=== PATIENT | male | born 1980 | race Caucasian/White ===

== ENCOUNTER 2016-09-21 11:00 | Emergency (ER) | payer BC, OTHER ==
[~2016-09-21] VITALS: Ht 160 cm; Wt 76.0 kg
[~2016-09-21 11:00] MED LIST: ONDA4TAB7 SL; VSNOPS OPB
[2016-09-21 11:04] VITALS: TEMP 36.7; Ht 160 cm; Wt 76.0 kg
[2016-09-21 13:11] LABS: BASO % 0.6 %; BASO ABS # 0.03 K/uL (0-0.2); COMPLETE YES; EOS % 4.2 %; HEMATOCRIT 40.8 % (42-52); IG% 0.2 %; LYMPH % 38.2 %; MEAN CELL VOLUME 86.3 fL (80-100); MEAN CORPUSCULAR HEMOGLOBIN 29.8 pg (25-34); MEAN CORPUSCULAR HGB CONC 34.6 g/dl (32-36); MEAN PLATELET VOLUME 9.4 fL (7.4-10.4); MONO % 8.6 %; NEUT % 48.2 %; PLATELET COUNT 249 K/uL (130-400); RED BLOOD COUNT 4.73 M/uL (4.7-6.1); WHITE BLOOD COUNT 5.24 K/uL (4.8-10.8)
--- NOTE | 2016-09-21 13:11 | EMERGENCY ROOM VISIT NOTE ---
History First contact with patient: 12:13 Chief Complaint: BACK PAIN Stated Complaint: SCIATIC NERVE ISSUES/FEMERAL ARTERY History of Present Illness The patient is a 36 year old male who presents to the Emergency Room with complaints of Feeling as if his legs have been in a "semi-asleep state" times one and half weeks. The patient states he feels that the blood flow into his legs is not very good right now. He states he feels like something is "pinched off" on the bony parts of his back. The patient states this discomfort is in bilateral legs , and not worse on one side. The patient states when this occurs, and he moves , he experiences a head sandoval, and feels as if he could pass out. The patient states this lasts 5-6 seconds. He states when this happens, only his right leg feels like it is "on fire" and states he feels as if it is "like lava is in my veins". The patient states this lasts approximately 1 minute. The patient states these events occur in this order. He states after the episode, his legs feel heavy "like a wet log". The patient states this has been going on for approximately 1-1/2 weeks, and has been intermittent, however worse on the weekends from Wednesday through Wednesday. The patient states it last happened last night. He states it did not completely go away. He describes the sensation in his legs as a pulling or stretching. The patient states he is concerned about a blood clot. 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 The patient states he does complete the same activity during the week as he does on the weekends. He states when these episodes have occurred, he has been sitting, taking a shower, sleeping, or changing positions. Patient states the symptoms are associated with lightheadedness. The patient did attempt to use ibuprofen 600 mg once, and states he last did this last night and went to sleep. He is uncertain if this affected his symptoms. The patient states he did use an OTC electric stimulator, which she states feels that this worsened his pain. The patient does report history of 2 hernias which were fixed with mesh, proximally 2 years ago. The patient does admit to noticing possible spider bites in his pelvic region and on his legs approximate 3 weeks ago. The patient states they healed up well, and he denies ongoing rash or skin lesion. The patient denies chest pain, dyspnea, headache, dizziness, nausea, vomiting, abdominal pain, fatigue, lethargy, weakness, urinary changes, loss of bowel or bladder function, or other concerning symptoms. Review of Systems A complete 10 point review of systems was reviewed with the patient with pertinent positives and negatives as per history of present illness. All else were negative. Social History Smoking Status: Never Smoker Current/Historical Medications No Active Prescriptions or Reported Meds Physical Exam Vital Signs Date Time Temp Pulse Resp B/P (MAP) Pulse Ox O2 Delivery O2 Flow Rate FiO2 09/21/16 12:57 66 18 114/72 99 Room Air 09/21/16 11:04 36.7 76 16 123/81 99 Physical Exam VITALS: Vitals are noted on the nurse's note and reviewed by myself. Vital signs stable. GENERAL: This is a 36-year-old male, in no acute distress, nondiaphoretic, well- developed well-nourished. SKIN: The skin was without rashes, erythema, edema, or bruising. There is no tenting of the skin. Capillary reflex less than 2 seconds. HEAD: Normocephalic atraumatic. EARS: External auditory canals clear, tympanic membranes pearly lewis without erythema or effusion bilaterally. EYES: Pupils equal round and reactive to light and accommodation. Conjunctivae without injection, sclerae without icterus. Extraocular movements intact. NOSE: Patent, turbinates without inflammation or discharge. No sinus tenderness. MOUTH: Mucous membranes moist. Tonsils are not enlarged. Pharynx without erythema or exudate. Uvula midline. Airway patent. Tongue does not deviate. NECK: Supple without nuchal rigidity. No lymphadenopathy. No thyromegaly. Cervical spine is nontender. No JVD. HEART: Regular rate and rhythm without murmurs gallops or rubs. LUNGS: Clear to auscultation bilaterally without wheezes, rales or rhonchi. No dullness to percussion. No retractions or accessory muscle use. ABDOMEN: Positive bowel sounds x 4. Normal tympanic percussion. Soft, nontender, without masses or organomegaly. Rogers sign negative. No guarding or rebound tenderness. No CVA tenderness. MUSCULOSKELETAL: No muscle atrophy, erythema, or edema noted. Full range of motion without joint tenderness in all extremities. No tenderness to palpation. Normal gait. Strength 5/5 throughout. No pain on palpation of the bilateral calves. No palpable cord. NEURO: Patient was alert and oriented to person place and time. Normal sensation to light and sharp touch. Deep tendon reflexes 2+ throughout. No focal neurological deficits. Medical Decision & Procedures ER Provider Diagnostic Interpretation: LABS: CBC without leukocytosis, thrombocytopenia. Hematocrit is slightly low at 40.8. CMP without abnormalities. Kidney function normal, electrolytes normal. Urinalysis normal. Lyme disease testing was negative. L-Spine X-Ray: FINDINGS: Mild straightening of normal lumbar lordosis, which may be positional. Vertebral body heights and alignment maintained. Intervertebral disc spaces preserved. No radiographic evidence of acute fracture or subluxation. No osseous neural foraminal narrowing. Nonobstructive bowel gas pattern. No gross pneumoperitoneum. IMPRESSION: No significant abnormality of the lumbar spine. Bilateral Venous Duplex Scan: FINDINGS: Real-time and color flow Doppler imaging were performed. Flow was seen within the femoral, popliteal and calf veins with no intraluminal thrombus demonstrated. The saphenous vein is patent. IMPRESSION: No evidence of lower extremity DVT. Laboratory Results 09/21/16 12:15 Red Blood Count 4.73, Mean Corpuscular Volume 86.3, Mean Corpuscular Hemoglobin 29.8, Mean Corpuscular Hemoglobin Concent 34.6, Mean Platelet Volume 9.4, Neutrophils (%) (Auto) 48.2, Lymphocytes (%) (Auto) 38.2, Monocytes (%) (Auto) 8.6, Eosinophils (%) (Auto) 4.2, Basophils (%) (Auto) 0.6, Neutrophils # (Auto) 2.53, Lymphocytes # (Auto) 2.00, Monocytes # (Auto) 0.45, Eosinophils # (Auto) 0.22, Basophils # (Auto) 0.03 09/21/16 12:15 Test 09/21/16 12:15 09/21/16 12:55 White Blood Count 5.24 K/uL (4.8-10.8) Red Blood Count 4.73 M/uL (4.7-6.1) Hemoglobin 14.1 g/dL (14.0-18.0) Hematocrit 40.8 % (42-52) Mean Corpuscular Volume 86.3 fL (80-100) Mean Corpuscular Hemoglobin 29.8 pg (25-34) Mean Corpuscular Hemoglobin Concent 34.6 g/dl (32-36) Platelet Count 249 K/uL (130-400) Mean Platelet Volume 9.4 fL (7.4-10.4) Neutrophils (%) (Auto) 48.2 % Lymphocytes (%) (Auto) 38.2 % Monocytes (%) (Auto) 8.6 % Eosinophils (%) (Auto) 4.2 % Basophils (%) (Auto) 0.6 % Neutrophils # (Auto) 2.53 K/uL (1.4-6.5) Lymphocytes # (Auto) 2.00 K/uL (1.2-3.4) Monocytes # (Auto) 0.45 K/uL (0.11-0.59) Eosinophils # (Auto) 0.22 K/uL (0-0.5) Basophils # (Auto) 0.03 K/uL (0-0.2) RDW Standard Deviation 40.9 fL (36.4-46.3) RDW Coefficient of Variation 12.8 % (11.5-14.5) Immature Granulocyte % (Auto) 0.2 % Immature Granulocyte # (Auto) 0.01 K/uL (0.00-0.02) Anion Gap 5.0 mmol/L (3-11) Est Creatinine Clear Calc Drug Dose 93.2 ml/min Estimated GFR () 111.7 Estimated GFR (Non- 96.4 BUN/Creatinine Ratio 14.7 (10-20) Calcium Level 8.9 mg/dl (8.5-10.1) Total Bilirubin 0.4 mg/dl (0.2-1) Aspartate Amino Transf (AST/SGOT) 14 U/L (15-37) Alanine Aminotransferase (ALT/SGPT) 22 U/L (12-78) Alkaline Phosphatase 43 U/L (45-117) Total Protein 8.0 gm/dl (6.4-8.2) Albumin 4.1 gm/dl (3.4-5.0) Globulin 3.9 gm/dl (2.5-4.0) Albumin/Globulin Ratio 1.1 (0.9-2) Lyme Disease IgG Antibody NEG (NEG) Lyme Disease IgM Antibody NEG (NEG) Urine Color YELLOW Urine Appearance CLEAR (CLEAR) Urine pH 5.5 (4.5-7.5) Urine Specific [place] 1.014 (1.000-1.030) Urine Protein NEG (NEG) Urine Glucose (UA) NEG (NEG) Urine Ketones NEG (NEG) Urine Occult Blood NEG (NEG) Urine Nitrite NEG (NEG) Urine Bilirubin NEG (NEG) Urine Urobilinogen NEG (NEG) Urine Leukocyte Esterase NEG (NEG) ED Course The patient was seen and evaluated as above. X-ray of lumbar spine, lab work, bilateral venous duplex of the lower extremities was ordered. I reviewed all results, and discussed them with Dr. Griggs. Discussed all findings with the patient. The patient was encouraged to follow up outpatient with his PCP. He was discharged home in good condition. Medical Decision Throughout the course of the patient's care, I considered etiologies including lumbar strain, musculoskeletal pain, sciatica, deep vein thrombosis, superficial vein thrombosis, cellulitis, herniated disc, lumbar fracture, neuropathic pain, cauda equina syndrome, malignancy, and others. Based on the patient's overall negative workup, and benign exam at this time, I do feel that his back pain is positional or musculoskeletal in nature. I do feel that the patient may require a more in-depth workup outpatient, and did discuss with him the importance of follow-up care. I do not feel that the patient's symptoms warrant emergent admission or workup at this time. Impression Primary Impression: Back pain Additional Impression: Leg pain Departure Information Dispostion Home / Self-Care Condition GOOD Prescriptions No Active Prescriptions or Reported Meds Referrals Kim Burks M.D. (MEDICAL) (PCP) Patient Instructions Back Pain - [facility], Leg Low Back Pain Poss Causes, My [facility] Additional Instructions You have been treated in the Emergency Department for Back Pain and leg pain. For pain control, you can use the following [id number] medicines (if >12 yo): - Regular strength (325mg/tab) Tylenol (acetaminophen) 2 tabs every 4-6 hours as needed. Do not exceed 12 tablets in a 24 hour period. Avoid taking more than 4 grams (4000 mg) of Tylenol per day. This includes any other sources of acetaminophen you may take on a regular basis. - Regular strength (200 mg/tab) Advil (ibuprofen) 1-2 tabs every 4-6 hours as needed. Do not exceed a dose of 3200 mg per day. If this is an acute injury, ice can be applied to the area of pain for the first 3 days to help decrease pain and inflammation. After the first 3 days, a heating pad can be used over the area for continued soothing relief. You should schedule a follow-up appointment in 1-2 days with your Primary Care Provider for further evaluation and treatment of your back pain. Return to the Emergency Department if your current symptoms worsen despite treatment course outlined above, or if you develop any of the following symptoms : intractable pain despite aforementioned treatment course, loss of control of your bowel or bladder, numbness or tingling in your groin, or development of a fever, leg swelling, redness, tenderness, or other concerning symptoms. Problem Qualifiers Primary Impression: Back pain Back pain location: low back pain Chronicity: acute Back pain laterality: bilateral Sciatica presence: without sciatica Qualified Codes: M54.5 - Low back pain Additional Impression: Leg pain Laterality: bilateral Qualified Codes: M79.604 - Pain in right leg; M79.605 - Pain in left leg
[2016-09-21 13:12] LABS: URINE APPEARANCE CLEAR (CLEAR); URINE BILIRUBIN NEG (NEG); URINE COLOR YELLOW; URINE NITRITE NEG (NEG); URINE PH 5.5 (4.5-7.5); URINE SPECIFIC GRAVITY 1.014 (1.000-1.030); UROBILINOGEN NEG (NEG); ZZUR CULT IF INDIC CLEAN CATCH NO
[2016-09-21 13:17] LABS: MANUAL MICROSCOPIC REQUIRED? NO; REVIEW REQ? NO
--- NOTE | 2016-09-21 13:24 | DIAGNOSTIC IMAGING REPORT ---
L-SPINE MIN 4 VIEWS ROUTINE CLINICAL HISTORY: 36 years-old Male presenting with Low back pain. TECHNIQUE: Frontal, bilateral oblique, and lateral views of the lumbar spine and coned in lateral view of the lumbosacral junction were obtained. COMPARISON: None. FINDINGS: Mild straightening of normal lumbar lordosis, which may be positional. Vertebral body heights and alignment maintained. Intervertebral disc spaces preserved. No radiographic evidence of acute fracture or subluxation. No osseous neural foraminal narrowing. Nonobstructive bowel gas pattern. No gross pneumoperitoneum. IMPRESSION: No significant abnormality of the lumbar spine. Electronically signed by: Layo Bentley M.D. 09/21/2016 1:23 PM Dictated Date/Time: 09/21/2016 1:15 PM
[2016-09-21 13:28] LABS: BUN/CREATININE RATIO 14.7 (10-20); CALCIUM 8.9 mg/dl (8.5-10.1)
[2016-09-21 13:31] LABS: ALB/GLOB RATIO 1.1 (0.9-2)
--- NOTE | 2016-09-21 13:37 | DIAGNOSTIC IMAGING REPORT ---
ULTRASOUND VENOUS DOPPLER LWR EXT BILA CLINICAL HISTORY: Leg swelling and warmth COMPARISON STUDY: No previous studies for comparison. FINDINGS: Real-time and color flow Doppler imaging were performed. Flow was seen within the femoral, popliteal and calf veins with no intraluminal thrombus demonstrated. The saphenous vein is patent. IMPRESSION: No evidence of lower extremity DVT. Electronically signed by: Bruno Becerra M.D. 09/21/2016 1:35 PM Dictated Date/Time: 09/21/2016 1:35 PM
[2016-09-21 14:14] LABS: LYME DISEASE AB IGG NEG (NEG); LYME DISEASE AB IGM NEG (NEG)
[2016-09-21 14:55] VITALS: BP 121/75; PULSE 61; O2SAT 99
== END 2016-09-21 14:59 | disposition home or self-care (01) ==
LOC: C.EDB 11:01 → C.EDC 14:59
DX: M54.5 Low back pain (principal); M79.604 Pain in right leg; M79.605 Pain in left leg